=== PATIENT | male | born 2000 | race Two or more races ===

== ENCOUNTER 2024-06-26 13:31 | Emergency (ER) | payer MEDICAID, SELFPAY ==
[2024-06-26 13:50] VITALS: BP 117/81; PULSE 91; RESP 18; TEMP 36.9; O2SAT 98
--- NOTE | 2024-06-26 14:19 | EDNOTE_ITS ---
<Statement entered by Ciara Lipscomb MD - 06/26/24 16:02> As co-signing physician, I was present and available for consult prn. I concur with the plan and care as documented by the midlevel provider. ED Wound/Laceration-RME/HPI General Chief Complaint: Wound/Laceration Stated Complaint: FINGER LAC Time Seen by Provider: 06/26/24 13:39 Arrival date/time: 06/26/24 13:31 22-year-old male presents to the emergency department with a small laceration to the second digit (index finger) sustained while using a drill. The injury occurred earlier today. He reports minor pain at the site but denies numbness, tingling, or loss of function. No foreign body sensation or other injuries reported. Tetanus status is unclear. Limitations: no limitations Related Data Previous Rx's ?Medication ?Instructions ?Recorded albuterol sulfate 90 mcg/actuation 2 puff inhalation Q ID #18 grams 09/04/18 aerosol inhaler cetirizine 10 mg tablet (Allergy 10 mg PO QDAY PRN all ergy symptoms 09/04/18 Relief (cetirizine)) #30 tabs sodium chloride 0.65 % nasal spray 2 spray intranasal QID #60 mL 09/04/18 aerosol (Saline Mist) cyclobenzaprine 10 mg tablet 10 mg PO TID PRN muscle s pasm #10 06/11/22 tabs ibuprofen 600 mg tablet 600 mg PO TID PRN pain #10 t abs 06/11/22 Allergies Allergy/AdvReac Type Severity Reaction Status Date / Time Penicillins Allergy Severe Rash Verified 09/26/22 15:11 Review of Systems Review of Systems Systems Reviewed: All systems reviewed, normal except as documented ED Exam General Limitations: Present no limitations General appearance: Present alert and in no apparent distress Head Head exam: Present atraumatic Eye Eye exam: Present normal appearance, PERRL and EOMI ENT ENT exam: Present normal exam, normal oropharynx and mucous membranes moist Neck Neck exam: Present normal inspection, full ROM and trachea midline Chest Chest inspection: Present normal inspection and symmetric chest wall rise Respiratory Respiratory exam: Present normal lung sounds bilaterally Cardiovascular Cardiovascular exam: Present regular rate, normal rhythm and normal heart sounds Abdominal Exam Abdominal exam: Present soft and normal bowel sounds; Absent distention or tenderness Extremities Exam Extremities exam: Present normal inspection and full ROM Expanded Upper Extremity Exam Shoulder exam: Present normal inspection Arm exam: Present normal inspection Elbow exam: Present normal inspection Hand L/R back image: 2 1. Superficial less than half centimeter laceration noted to distal second digit left hand Back Exam Back exam: Present normal inspection and full ROM Neurological Exam Neurological exam: Present alert, oriented X3 and CN II-XII intact Psychiatric Psychiatric exam: Present normal affect and normal mood Skin Skin exam: Present warm, dry, intact and normal color Course Quality Measures none Orders Category Date Time Status Dermabond Set Up NOW Care 06/26/24 14:15 Active TET,DIP/PERT AC (Adult)-Tdap [Boostrix Adult (Tdap) Med 06/26/24 14:20 Discontinued Vacc] 0.5 ml IMI .ONCE ONE Vital Signs Vital signs: Vital Signs Temperature 98.4 F 06/26/24 13:50 Pulse Rate 91 06/26/24 13:50 Respiratory Rate 18 06/26/24 13:50 Blood Pressure 117/81 06/26/24 13:50 Pulse Oximetry (%) 98 06/26/24 13:50 Oxygen Delivery Method Room Air 06/26/24 13:50 Wound / Laceration MDM Narrative MDM Narrative:: Using sterile technique, patients wound cleansed, no anesthesia used. 0.5cm superficial wound clease with 150ml of normal saline, alllowed to dry, then used 3 steri strips with Dermabond for complete closure of wound. Patient tolerated procedure well. Patient data External records reviewed:: [facility] previous records Clinical information provided by:: patient Social determinants that could affect healthcare access:: none Patient has the following chronic illnesses:: None How is presenting disease/condition affected by chronic disease/condition?: no chronic disease Evaluation data The following diagnostics were reviewed and interpreted by me:: other (specify) Lab and/or radiology exams considered but not ordered:: Finger x-ray however is very superficial skin wound Interpretation Summary: Not applicable Medications / Prescriptions Medications or Prescriptions considered but not ordered:: No Medication administrations:: Medication Administration History Discontinued Medications Diphtheria/Tetanus/Acell Pertussis (Diphth,Pertuss(Acell),Tet Vac 0.5 Ml Syr- Adult) 0.5 ml IMi .ONCE ONE Stop: 06/26/24 14:21 Last Admin: 06/26/24 14:42 Dose: 0.5 ml Documented By: all medications administered and effective Consultations Consultation(s) initiated? (list below): No Diagnosis Wound Differential Diagnosis: laceration, abscess, abrasion and avulsion of skin Most likely diagnosis given after review of the tests above:: Skin avulsion Admission Indicated Admission indicated?: not indicated Admission Request Was there a request for admission?: No Disposition Plan Disposition Plan: Discharge Discharge Attestation Discharge Attestation: The patient and all family members were given an opportunity to ask questions and understood the discharge instructions. Discharge instructions specifically effects, indications for sooner follow up or return to the emergency department, and the expected course of current diagnosis. Patient condition: Stable Discharge Plan Plan Patient Disposition: HOME (Self Care) Patient condition on transfer: Stable Prescriptions/Referrals Prescriptions/Med Rec: No Action albuterol sulfate 90 mcg/actuation HFA aerosol inhaler 2 puff INH QID Qty: 18 0RF cetirizine [Allergy Relief (cetirizine)] 10 mg tablet 10 mg PO QDAY PRN (Reason: allergy symptoms) Qty: 30 0RF sodium chloride [Saline Mist] 0.65 % aerosol,spray 2 spray INTRANASAL QID Qty: 60 0RF cyclobenzaprine 10 mg tablet 10 mg PO TID PRN (Reason: muscle spasm) Qty: 10 0RF ibuprofen 600 mg tablet 600 mg PO TID PRN (Reason: pain) Qty: 10 0RF Problem List Clinical Impression: Laceration Patient/Caregiver Discharge Instructions Discharge Activity: activity as tolerated Additional Instructions: Keep area clean and dry. Please do not pick at the skin glue or Steri-Strips. Your tetanus vaccine was updated today Follow-up with your PCP or clinic for wound recheck in 24 hours. Return to the emergency department with any worsening symptoms and condition. Print Language: Ukrainian Stand Alone Forms: Talya Award Info., Patient Portal Info Letter PA/JONNY Supervising Physician PA/JONNY Supervising Physician: Dr. Sanabria
[2024-06-26] MEDS: DIPHTH,PERTUSS(ACELL),TET VAC 0.5 ML SYR- ADULT IMi (14:42)
== END 2024-06-26 15:40 | disposition home or self-care (01) ==
LOC: SERX 15:06
PROVIDERS: Emergency Provider Emergency Medicine; PCP Physician Assistant
DX: S61.211A Laceration without foreign body of left index finger without damage to nail, initial encounter (principal); W29.8XXA Contact with other powered hand tools and household machinery, initial encounter; Z23 Encounter for immunization
CPT/HCPCS: 12001; 90471; 90715; 99283

== ENCOUNTER 2025-01-02 10:05 | Emergency (ER) | payer MEDICAID, SELFPAY ==
[2025-01-02 10:06] VITALS: BMI 18.3
[2025-01-02 10:10] VITALS: BP 128/90; PULSE 88; RESP 17; TEMP 37.1; O2SAT 99; BMI 19.0
--- NOTE | 2025-01-02 10:30 | XR_ITS ---
Examination: Hand, left hand 2 views Technique: Left hand AP lateral 2 views Indications: Injury to the hand today with third digit pain Findings: Acute fractures distal aspect distal phalanx third digit without significant displacement No dislocation Impression: Acute fractures distal phalanx third digit
--- NOTE | 2025-01-02 10:31 | PD.EDHAND ---
Upper Extremity Injury RME/HPI General Chief Complaint: Hand/Wrist Problems Stated Complaint: CRUSHED MY L MIDDLE FINGER WITH A CAR DOOR Time Seen by Provider: 01/02/25 10:10 Arrival date/time: 01/02/25 10:05 This is a 24-year-old male that comes into the emergency room with complaints of left third digit being crushed by car door. Patient denies any other trauma. Patient reports he has had a tetanus shot in the last 5 years. Patient denies past medical history. Related Data Previous Rx's ?Medication ?Instructions ?Recorded albuterol sulfate 90 mcg/actuation 2 puff inhalation QID #18 grams 09/04/18 aerosol inhaler cetirizine 10 mg tablet (Allergy 10 mg PO QDAY PRN allergy symptoms 09/04/18 Relief (cetirizine)) #30 tabs sodium chloride 0.65 % nasal spray 2 spray intranasal QID #60 mL 09/04/18 aerosol (Saline Mist) cyclobenzaprine 10 mg tablet 10 mg PO TID PRN muscle spasm #10 06/11/22 tabs ibuprofen 600 mg tablet 600 mg PO TID PRN pain #10 tabs 06/11/22 ibuprofen 800 mg tablet 800 mg PO Q6H PRN pain #10 tabs 01/02/25 Allergies Allergy/AdvReac Type Severity Reaction Status Date / Time Penicillins Allergy Severe Rash Verified 01/02/25 10:07 Review of Systems Review of Systems Systems Reviewed: All systems reviewed, normal except as documented Past Medical History Past Medical History CARDIAC: Negative Congestive Heart Failure RESPIRATORY: Negative Chronic Obstructive Pulmonary Disease (COPD) GENITOURINARY: Negative Renal Disease ENDOCRINE: Negative Diabetes Mellitus Type 1 or Diabetes Mellitus Type 2 Social History SMOKING STATUS: Never smoker ED Exam Narrative Physical exam: VITAL SIGNS: Reviewed. GENERAL APPEARANCE: Alert and interactive, follows commands, no acute distress HEAD AND FACE: Non-traumatic. ENT: PERRL, conjuctiva pink and clear, eyelid no trauma, Mucous membrane moist. NECK: Supple, nontender, no nuchal rigidity. CHEST: No tenderness, no crepitus, no paradoxical movement, no retractions. LUNGS: breathing even and unlabored HEART: Regular rate, cap refill less than 2 seconds ABDOMEN: Soft, nondistended, no guarding, nontender, no rebound, no masses, NEUROLOGICAL: Gross motor function intact sensory function intact, Appropriate for age. MUSCULOSKELETAL: low back nontender, full range of motion. Ambulatory. Left third digit tip of finger slightly swollen nailbed mildly erythemic to the left lateral side otherwise no obvious deformity EXTREMITIES: No redness no swelling no skin breakdown on bilateral foot and leg. Distal neurovascular status intact bilateral foot SKIN: Color pink, dry, no rash Course Quality Measures none Orders Category Date Time Status Splint / Immobilizer STAT Care 01/02/25 11:40 Completed XR hand LT 2V Stat Exams 01/02/25 10:30 Completed Ibuprofen Tab [Motrin Tab] Med 01/02/25 10:30 Discontinued 600 mg PO X1 ONE Vital Signs Vital signs: Vital Signs Temperature 98.7 F 01/02/25 10:10 Pulse Rate 88 01/02/25 10:10 Respiratory Rate 17 01/02/25 10:10 Blood Pressure 128/90 H 01/02/25 10:10 Pulse Oximetry (%) 99 01/02/25 10:10 Oxygen Delivery Method Room Air 01/02/25 10:10 Extremity Injury MDM Narrative MDM Narrative:: Findings: Acute fractures distal aspect distal phalanx third digit without significant displacement No dislocation Impression: Acute fractures distal phalanx third digit Will put patient's finger in finger splint. Patient was bleeding slightly from the nailbed but there appears to be no bone or exposed skin anywhere. Patient told to come back to the emergency room if signs of infection. Wound clean dressing placed over wound. Patient verbalized understanding. Patient will follow-up with primary provider Follow up with primary provider in 1-2 days. Come back to ED if symptoms change or worsen Dragon dictation: Although this document has been carefully reviewed, there may still be some phonetic and other typographical errors. These errors are purely grammatical due to imperfections in the software program and should not be construed in any way to compromise the substance of the patient's medical care during this visit. Patient data External records reviewed:: [facility] previous records Clinical information provided by:: patient Social determinants that could affect healthcare access:: none Patient has the following chronic illnesses:: none How is presenting disease/condition affected by chronic disease/condition?: no chronic disease Evaluation data The following diagnostics were reviewed and interpreted by me:: radiology exam(s) Lab and/or radiology exams considered but not ordered:: none Interpretation Summary: see note Medications / Prescriptions Medications or Prescriptions considered but not ordered:: none Medication administrations:: Medication Administration History Discontinued Medications Ibuprofen (Ibuprofen Tab 600 Mg Tablet) 600 mg PO X1 ONE Stop: 01/02/25 10:31 Last Admin: 01/02/25 10:54 Dose: 600 mg Documented By: CHRIS see angella Consultations Consultation(s) initiated? (list below): No Diagnosis Upper Extremity Injury Differential Diagnosis: sprain and strain of wrist, fracture of hand and other (finger fracture ) Most likely diagnosis given after review of the tests above:: Acute fractures distal phalanx third digit Admission Indicated Admission indicated?: not indicated Admission Request Was there a request for admission?: No Disposition Plan Disposition Plan: Discharge Discharge Attestation Discharge Attestation: The patient and all family members were given an opportunity to ask questions and understood the discharge instructions. Discharge instructions specifically effects, indications for sooner follow up or return to the emergency department, and the expected course of current diagnosis. Patient condition: Stable Discharge Plan Plan Patient Disposition: HOME (Self Care) Patient condition on transfer: Stable Prescriptions/Referrals Prescriptions/Med Rec: New ibuprofen 800 mg tablet 800 mg PO Q6H PRN (Reason: pain) Qty: 10 0RF No Action albuterol sulfate 90 mcg/actuation HFA aerosol inhaler 2 puff INH QID Qty: 18 0RF cetirizine [Allergy Relief (cetirizine)] 10 mg tablet 10 mg PO QDAY PRN (Reason: allergy symptoms) Qty: 30 0RF sodium chloride [Saline Mist] 0.65 % aerosol,spray 2 spray INTRANASAL QID Qty: 60 0RF cyclobenzaprine 10 mg tablet 10 mg PO TID PRN (Reason: muscle spasm) Qty: 10 0RF ibuprofen 600 mg tablet 600 mg PO TID PRN (Reason: pain) Qty: 10 0RF Referrals: Vimal Causey MD [Primary Care Provider, Family Practice] - In 1 week Problem List Clinical Impression: Fracture of phalanx of digit of hand Patient/Caregiver Discharge Instructions Discharge Activity: activity as tolerated Education Materials: ED Fracture, Upper Extremity Additional Instructions: Follow up with primary provider in 1-2 days. Come back to ED if symptoms change or worsen. Print Language: Indonesian Stand Alone Forms: Talya Award Info., Patient Portal Info Letter PA/FRUCTOSE LOADER Supervising Physician PA/FRUCTOSE LOADER Supervising Physician: chapin
[2025-01-02] MEDS: IBUPROFEN TAB 600 MG TABLET PO (10:54)
== END 2025-01-02 12:30 | disposition home or self-care (01) ==
PROVIDERS: Emergency Provider Emergency Medicine; PCP Family Medicine
DX: S62.633A Displaced fracture of distal phalanx of left middle finger, initial encounter for closed fracture (principal); W23.0XXA Caught, crushed, jammed, or pinched between moving objects, initial encounter
CPT/HCPCS: 73120; 99284; A9270

== ENCOUNTER → 2025-01-25 | Outpatient (CLI) | payer MEDICAID, SELFPAY ==
--- NOTE | 2025-01-25 | XR_ITS ---
Examination: Hand, left 3 views Technique: Hand AP, oblique, lateral 3 views Date and time of exam: January 25, 2025, 1114 hours INDICATIONS: Car door injury 3 weeks ago with third digit pain. FINDINGS: Stable nondisplaced fractures distal aspect distal phalanx third digit with early healing No foreign body No dislocation IMPRESSION: Stable alignment fractures distal aspect distal findings third digit compared with January 02, 2025 with early healing
== END | disposition home or self-care (01) ==
LOC: CDIM 10:49
PROVIDERS: PCP Physician Assistant; Referring Provider Nurse Practitioner Gerontology; Visit Provider Nurse Practitioner Gerontology
DX: S62.633A Displaced fracture of distal phalanx of left middle finger, initial encounter for closed fracture (principal); X58.XXXA Exposure to other specified factors, initial encounter
CPT/HCPCS: 73130

== ENCOUNTER → 2025-02-15 | Outpatient (CLI) | payer MEDICAID, SELFPAY ==
--- NOTE | 2025-02-15 | XR_ITS ---
Examination: Wrist, left 3 views Technique: Wrist AP, oblique, lateral 3 views Date and time of exam: February 15, 2025, 1213 hours INDICATIONS: Left wrist pain beginning 1 month ago. FINDINGS: No fracture or dislocation. No avascular necrosis. No erosive or other significant arthritic change IMPRESSION: Negative for osseous abnormality
--- NOTE | 2025-02-15 | XR_ITS ---
Examination: Hand, left 3 views Technique: Hand AP, oblique, lateral 3 views Date and time of exam: February 15, 2025, 12:13 p.m. INDICATIONS: Car door injury to the hand January 02, 2025, acute fracture distal aspect distal phalanx third digit FINDINGS: Compared with January 02, 2025 significant healing fracture distal phalanx third digit with stable and satisfactory alignment IMPRESSION: Significant healing fracture distal phalanx third digit with stable and satisfactory alignment
== END | disposition home or self-care (01) ==
LOC: CDIM 11:10
PROVIDERS: PCP Family Medicine; Referring Provider Surgery; Visit Provider Surgery
DX: S62.633A Displaced fracture of distal phalanx of left middle finger, initial encounter for closed fracture (principal); X58.XXXA Exposure to other specified factors, initial encounter; M25.532 Pain in left wrist
CPT/HCPCS: 73110; 73130

== ENCOUNTER → 2025-03-02 | Outpatient (CLI) | payer MEDICAID, SELFPAY ==
--- NOTE | 2025-03-02 | XR_ITS ---
Examination: Hand, left Technique: Hand AP, oblique, lateral 3 views Date and time of exam: 3 views March 02, 2025, 1135 hours, compared to hand films dating to January 02, 2025 INDICATIONS: Acute fractures distal aspect distal phalanx third digit January 02, 2025 FINDINGS: Significant healing fractures distal aspect distal phalanx third digit No new fractures IMPRESSION: Significant healing fractures distal aspect distal phalanx third digit with satisfactory alignment
== END | disposition home or self-care (01) ==
LOC: CDIM 10:49
PROVIDERS: PCP Family Medicine; Referring Provider Nurse Practitioner Gerontology; Visit Provider Nurse Practitioner Gerontology
DX: S62.633A Displaced fracture of distal phalanx of left middle finger, initial encounter for closed fracture (principal); X58.XXXA Exposure to other specified factors, initial encounter
CPT/HCPCS: 73130